=== PATIENT | female | born 1995 | race African-American/Black ===

== ENCOUNTER 2016-12-03 17:47 | Emergency (ER) | payer MEDICAID ==
[~2016-12-03] VITALS: Ht 152.4 cm; Wt 49.0 kg
[2016-12-03 17:51] VITALS: Ht 152.4 cm; Wt 49.0 kg
[2016-12-03] MEDS ORDERED: SOD CHLORIDE 0.9% 1,000 ML IV STA (19:25)
[2016-12-03] MEDS ORDERED: FAMOTIDINE 20 MG INJ IV STA (19:25)
[2016-12-03] MEDS ORDERED: ONDANSETRON 4 MG INJ IV STA (19:25)
[2016-12-03] MEDS ORDERED: morphine 2 MG INJ IV STA (19:25)
[2016-12-03 20:29] LABS: ADD UMIC YES; UR BILIRUBIN (Dip) NEGATIVE (NEGATIVE); UR BLOOD (Dip) 1+ (NEGATIVE); UR CLARITY CLEAR (CLEAR); UR COLOR LT. YELLOW (YELLOW); UR GLUCOSE (Dip) NEGATIVE (NEGATIVE); UR KETONES (Dip) 3+ (NEGATIVE); UR LEUKOCYTE ESTERASE (Dip) NEGATIVE (NEGATIVE); UR NITRITE (Dip) NEGATIVE (NEGATIVE); UR TOTAL PROTEIN (Dip) 1+ (NEGATIVE); UR UROBILINOGEN (Dip) 1.0 E.U./dL (0.1-1.0)
[2016-12-03 20:44] LABS: UR BACTERIA RARE; UR MUCUS FEW; UR SQUAMOUS EPITHELIAL CELL FEW; URINE RBCS 0-2 /HPF (0)
--- NOTE | 2016-12-03 20:44 | RADRPT ---
PROCEDURE: US Pelvis Non-OB CLINICAL INDICATION: Pelvic pain TECHNIQUE: Images were taken during real time trans pelvic interrogation. Color-flow and Doppler i nterrogation of the ovaries was performed. Endovaginal scanning was not performed. COMPARISON: None FINDINGS: Uterus: The uterus is retroflexed and normal in size measuring 6.9 cm in sagittal diameter and 4.1 x 3.4 cm in cross diameter. The endometrial stripe measures 0.9 cm Inderal AP diameter. Ovaries: The right ovary measures 2.4 x 2.2 x 1.7 cm and appears unremarkable. The left ovary measures 3.2 x 2.7 x 2.2 cm and appears unremarkable. Each ovary demonstrated increased vascular flow on Doppler. Adnexa: No adnexal mass is identified. Each fallopian tube appears mildly prominent. Free intraperitoneal fluid: And a small amount of free fluid is seen in each adnexal region and in t he cul-de-sac. IMPRESSION: 1. Normal sized and the retroflexed uterus with a 0.9 cm endometrial stripe. 2. The ovaries are normal in size each demonstrating slightly increased vascularity with prominent fallopian tubes and with a trace of free fluid seen in each adnexal region as well as the cul-de-sac . 3. No adnexal mass is identified. Physician Tenisha Date Time Electronically viewed and signed by Physician Tenisha on 12/03/2016 20:44 /
--- NOTE | 2016-12-03 20:56 | RADRPT ---
PROCEDURE: CT Abdomen and Pelvis without contrast CLINICAL INDICATION: Abdominal pain TECHNIQUE: Transaxial images were obtained through the abdomen and pelvis on a multi-slice scanner without the intravenous contrast administration. No oral contrast had previously been given. Sagit reji and coronal re-formations were subsequently reconstructed. One or more of the following dose reduction techniques were used: - Automated exposure control. - Adjustment of the mA and/or kV according to patient size. - Use of iterative reconstruction technique. Radiation dose: CTDIvol = 6.06 mGy; DLP = 282.10 mGy-cm. COMPARISON: Comparison to previous pelvic sonogram done earlier on the same date. The previous sonogram demonstrated a small amount of free intraperitoneal fluid with an empty uterus , the ovaries normal in size, and no adnexal mass identified. FINDINGS: Lung bases: The visualized lung bases appear unremarkable. Liver: The liver is normal in size. There is a focal area of focal fatty infiltration near the falc iform ligament anteriorly. Otherwise, no focal lesion is identified. Gallbladder: The wall is not thickened. No radiopaque stones are identified. Bile ducts: The intra and extrahepatic bile ducts are normal in caliber. Pancreas: Appears normal with no mass or inflammation evident. Spleen: Normal in size with no focal lesion. Adrenals: Normal with no mass identified. Kidneys, ureters and bladder: A 2 mm nonobstructing nephrolith is seen in the mid pole right kidney. There is increased density within the renal pyramids bilaterally compatible with nephrocalcinosis. No mass or hydronephrosis is evident and there is no perinephric stranding. The ureters are normal in caliber and no ureteroliths are identified. The bladder is poorly distended. Reproductive organs: The uterus is flexed ventrally. No adnexal mass is identified. Stomach and bowel: The stomach is mildly distended with gas. Substantial stool is seen within the r ectal ampulla and sigmoid colon. There is no evidence of bowel obstruction or inflammation. Appendix: Portions of a normal-appearing vermiform appendix attentively identified. Peritoneum: There is a small amount of free intraperitoneal fluid seen within the pelvis. No free a ir is identified. A tiny fat containing umbilical hernia is evident. Aorta: Normal in caliber with no aneurysmal dilatation. IVC: Unremarkable. Lymph nodes: No pathologically enlarged nodes are identified. Osseous structures: The osseous elements appear intact. IMPRESSION: 1. A 2 mm nonobstructing nephrolith is seen in the mid pole right kidney and there is increased den sity within the renal pyramids bilaterally compatible with mild nephrocalcinosis. There is no evide nce of urinary outflow obstruction or ureterolithiasis and the bladder is poorly distended. 2. Substantial stool seen in the rectal ampulla and sigmoid colon without evidence of bowel obstruc tion or inflammation. Portions of an unremarkable appearing vermiform appendix are tentatively iden tified. 3. Small amount of free intraperitoneal fluid seen in the pelvis. No free air is evident. 4. Tiny fat containing umbilical hernia. Physician Tenisha Date Time Electronically viewed and signed by Physician Tenisha on 12/03/2016 20:56 /
[2016-12-03 21:43] LABS: ADD SCAN DIFF NO
[2016-12-03 21:46] LABS: BASOPHIL # 0.1 10^3/ul (0.0-0.1); BASOPHILS % 1.1 % (0.0-2.0); EOSINOPHILS # 0.1 10^3/ul (0.0-0.5); HEMATOCRIT 37.6 % (37.0-47.0); HEMOGLOBIN 12.3 g/dl (12.0-16.0); LYMPHOCYTES % 45.7 % (15.0-51.0); MEAN CORPUSCULAR HEMOGLOBIN 29.1 pg (29.0-33.0); MEAN CORPUSCULAR HGB CONC 32.7 g/dl (32.0-37.0); MEAN CORPUSCULAR VOLUME 88.9 fl (82.0-101.0); MEAN PLATELET VOLUME 10.9 fl (7.4-10.4); MONOCYTE # 0.4 10^3/ul (0.3-0.9); MONOCYTES % 8.1 % (0.0-11.0); NEUTROPHIL # 1.9 10^3/ul (1.6-7.5); NEUTROPHILS % 42.9 % (39.0-77.0); PLATELET COUNT 227 10^3/UL (140-415); RED BLOOD COUNT 4.23 10^6/ul (4.20-5.40); RED CELL DISTRIBUTION WIDTH 13.6 % (11.5-14.5); WHITE BLOOD COUNT 4.5 10^3/ul (4.8-10.8)
[2016-12-03 22:10] LABS: ALBUMIN 5.1 g/dl (3.3-4.9); ALBUMIN/GLOBULIN RATIO 1.5; BILIRUBIN,INDIRECT 0.4 mg/dl (0-1.1); BILIRUBIN,TOTAL 0.4 mg/dl (0.2-1.3); CALCIUM 9.6 mg/dl (8.4-10.2); CREATININE 0.74 mg/dl (0.44-1.00); POTASSIUM 3.5 mmol/L (3.5-5.1); TOTAL PROTEIN 8.5 g/dl (6.1-8.1)
--- NOTE | 2016-12-03 22:35 | ERD ---
ER Documentation Chief Complaint Date/Time DATE: 12/03/16 TIME: 22:32 Chief Complaint ABD PAIN, N/V/D, NOT EATING, SENT BY PCP FOR ASSESSMENT HPI Patient is a 21-year-old female who presents with generalized abdominal pain with nausea vomiting and diarrhea that she has had for about 2 weeks. She has a history of gastritis and GERD and usually it is relieved with her current medications but it has not gone away this time. She has had a decreased appetite. She has had nausea with one episode of vomiting. Last menstrual period was November 15. Denies fever. Denies any urinary symptoms. ROS All systems reviewed and are negative except as per history of present illness. Allergies Allergies: Coded Allergies: No Known Allergy (Unverified , 12/03/16) PMhx/Soc Medical and Surgical Hx: pt denies Surgical Hx History of Surgery: No Anesthesia Reaction: No Hx Neurological Disorder: No Hx Respiratory Disorders: No Hx Cardiac Disorders: No Hx Psychiatric Problems: No Hx Miscellaneous Medical Probl: Yes (ACID REFLUX) Hx Alcohol Use: No Hx Substance Use: No Hx Tobacco Use: No Smoking Status: Never smoker FmHx Family History: No diabetes Physical Exam Vitals Vital Signs Date Time Temp Pulse Resp B/P Pulse Ox O2 Delivery O2 Flow Rate FiO2 12/03/16 17:51 99.7 125 16 105/63 98 Physical Exam General: well developed, well nourished, alert, nontoxic, no distress Head: normocephalic, atraumatic Eyes: PERRL, normal conjunctiva Neck: Supple, nontender, no lymphadenopathy, no midline tenderness Respiratory: Clear to auscaultation bilaterally, speaks in full sentences, no use of accesory muscles or labored breathing, no rales, ronchi, or wheezing Cardiovascular: RRR, No murmurs GI: Mild diffuse abdominal tenderness, negative Chavez sign, negative McBurney' s point tenderness, negative CVA tenderness, no rebound or guarding Back: no midline tenderness, no step offs or bony abnormalities, sensation to light touch in tact Result Diagram: 12/03/16213412/03/162134 Results 24 hrs Laboratory Tests Test 12/03/16 19:40 12/03/16 21:35 Urine Color LT. YELLOW Urine Clarity CLEAR Urine pH 6.0 Urine Specific [place] >=1.030 Urine Ketones 3+ Urine Nitrite NEGATIVE Urine Bilirubin NEGATIVE Urine Urobilinogen 1.0 E.U./dL Urine Leukocyte Esterase NEGATIVE Urine Microscopic RBC 0-2/HPF Urine Microscopic WBC 0-2/HPF Urine Squamous Epithelial Cells FEW Urine Bacteria RARE Urine Mucus FEW Urine Hemoglobin 1+ Urine Glucose NEGATIVE% Urine Total Protein 1+ White Blood Count 4.510^3/ul Red Blood Count 4.2310^6/ul Hemoglobin 12.3g/dl Hematocrit 37.6% Mean Corpuscular Volume 88.9fl Mean Corpuscular Hemoglobin 29.1pg Mean Corpuscular Hemoglobin Concent 32.7g/dl Red Cell Distribution Width 13.6% Platelet Count 90237^3/UL Mean Platelet Volume 10.9fl Neutrophils % 42.9% Lymphocytes % 45.7% Monocytes % 8.1% Eosinophils % 2.0% Basophils % 1.1% Nucleated Red Blood Cells % 0.0/100WBC Neutrophils # 1.910^3/ul Lymphocytes # 2.010^3/ul Monocytes # 0.410^3/ul Eosinophils # 0.110^3/ul Basophils # 0.110^3/ul Nucleated Red Blood Cells # 0.010^3/ul Sodium Level 142mmol/L Potassium Level 3.5mmol/L Chloride Level 106mmol/L Carbon Dioxide Level 21mmol/L Anion Gap 19 Blood Urea Nitrogen 14mg/dl Creatinine 0.74mg/dl Glucose Level 66mg/dl Calcium Level 9.6mg/dl Total Bilirubin 0.4mg/dl Direct Bilirubin 0.00mg/dl Indirect Bilirubin 0.4mg/dl Aspartate Amino Transf (AST/SGOT) 17IU/L Alanine Aminotransferase (ALT/SGPT) 17IU/L Alkaline Phosphatase 59IU/L Total Protein 8.5g/dl Albumin 5.1g/dl Globulin 3.40g/dl Albumin/Globulin Ratio 1.50 Lipase 325U/L Current Medications Medications (Trade) Dose Ordered Sig/Kanu Route PRN Reason Start Time Stop Time Status Last Admin Dose Admin Sodium Chloride (NS) 1,000 ml @ 1,000 mls/hr Q1H STAT IV 12/03/16 19:25 12/03/16 20:24 DC 12/03/16 20:55 Morphine Sulfate (morphine) 2 mg ONCE STAT IV 12/03/16 19:25 12/03/16 19:29 DC 12/03/16 20:54 Ondansetron HCl (Zofran Inj) 4 mg ONCE STAT IV 12/03/16 19:25 12/03/16 19:29 DC 12/03/16 20:54 Famotidine (Pepcid Iv) 20 mg ONCE STAT IV 12/03/16 19:25 12/03/16 19:29 DC 12/03/16 20:54 Procedures/MDM Patient has generalized abdominal pain. She does have a history of GERD. Lab work, pelvic ultrasound, and CT scan was reviewed by both myself and my supervising physician Dr. Irizarry and we agree she is scheduled for outpatient management. She was given copies of all of her labs and radiology reports that she can follow with primary care. Recommended this patient follow up with her primary care doctor within 48 hours or return to the emergency room for any worsening of symptoms. However this time I do believe there is suitable for outpatient management. I answered all their questions and they agreed with the plan and were discharged home. Departure Diagnosis: Primary Impression: Abdominal pain Condition: Stable Patient Instructions: Abdominal Pain Referrals: MAURA BOLANOS MD,QUINTIN CHAKRABORTY,BREANNA ABURTO,YE WILKERSON,MERCEDES LEOS,LEANNE Silver MD Additional Instructions: Call your primary care doctor TOMORROW for an appointment during the next 1-2 days.See the doctor sooner or return here if your condition worsens before your appointment time. OZ MUSE PA-C Dec 03, 2016 22:35
[2016-12-03] MEDS ORDERED: ONDA4TAB14 PO (22:42)
[2016-12-03 22:51] VITALS: BP 114/62; PULSE 72; RESP 20
== END 2016-12-03 22:52 | disposition home or self-care (01) ==
LOC: FTE 17:47
DX: R10.84 Generalized abdominal pain (principal); R11.2 Nausea with vomiting, unspecified; R10.2 Pelvic and perineal pain
CPT/HCPCS: 74176; 76856; 80053; 81001; 83690; 85025; J2270; J2405; J7030; Z7610; 96374; 96375